=== PATIENT | female | born 2000 | race Caucasian/White ===

== ENCOUNTER 2024-10-12 06:33 | Inpatient (IN) ==
[2024-10-12 07:51] LABS: Hematocrit (blood only) 32.7 % (37.0-47.0); Hemoglobin 11.2 g/dl (12.0-16.0); Mean Corpuscular Hemoglobin 31.7 pg (25.0-34.0); Mean Corpuscular Hgb Conc 34.3 g/dL (32.0-36.0); Mean Corpuscular Volume 92.6 fL (80.0-100.0); Mean Platelet Volume 12.4 fL (9.4-12.4); Platelet Count 193 K/uL (130-400); RDW Coefficient of Variation 13.1 % (11.5-14.5); RDW Standard Deviation 42.9 fL (36.4-46.3); Red Blood Count 3.53 M/uL (4.20-5.40); White Blood Count 8.84 K/ul (4.8-10.8)
[2024-10-12 08:07] LABS: Creatinine Clr Calc Pharmacy 213.2 ml/min
[2024-10-12 08:24] LABS: Creatinine Urine Random 195.7 mg/dl; Protein Creatinine Ratio Urine 0.6 (0-0.2); Total Protein Urine Random 115.8 mg/dl (0-11.9)
--- NOTE | 2024-10-12 08:46 | History & Physical Report ---
Date of Service October 12, 2024 Assessment & Plan (1) with 35 completed weeks gestation: (2) Preeclampsia: Plan Patient meets criteria for preeclampsia without severe sx. 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 given GA need to be cautious about when to deliver. Currently does not meet criteria for severe disease which would require immediate delivery. Without severe sx, recommendations for delivery at 37 weeks. Fetus category one, nst reactive. Plan to repeat labs in 4 hours. If stable, would consider d/c home with precautions and short f/u in the office tomorrow. If lfts are bumping or other concerns or severe sx develp, would recommend delivery. Continue to monitor closely. Explained situation to the patient and fob and they express understanding. History of Present Illness Chief Complaint: decreased movement Primary Care Provider: NO PCP Patient is a 23yowf with iup at 35 5/7 weeks who presents to labor and delivery this am noting a change in fm. Notes she is still feeling movement just not as strong. She was a oneil at 34 weeks and has been uncomplica kasey. She had a mildly elevated blood pressure so labs were ordered. She dipped +2 protein. 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 Bps in 140s/90s Patient notes a maza on/off for several days. Takes tylenol with some relief but always comes back. Not severe. no increase in edema. No RUQ pain. Notes some n/v over the last few days. and Delivery Plans Transfer into care @ 33+ weeks *records reviewed. Back pain in *PT referral placed Depression with anxiety *on meds *rec est with pcp myles Initial OB Labs 04/14/24 Blood Type & RH O positive Antibody Screen negative HCT/HGB 38.1/13.1 Platelets 265 Hep C IgG 13yrs+ non-reactive Pap Test Chlamydia not detected Gonorrhea not detected Rubella immune RPR non-reactive Urine Culture/Screen <10,000 normal urogenital masha HBsAg negative HIV non-reactive MCV 96.9 Ultrasound V Zoster IgG negative 24-28 Week OB Labs 08/08/24 HCT/HGB 33.5/11.2 Diabetes Screen (1hr) 121 Genetic testing [facility] 06/06/24 Screen negative Allergies Allergy/AdvReac Type Severity Reaction Status Date / Time No Known Allergies Allergy Verified 10/06/24 13:42 Home Medications Medication Instructions Recorded Confirmed Type lamotrigine 200 mg PO DAILY 09/28/24 10/12/24 History 21-iron fu-folic acid 1 tab PO DAILY 09/28/24 10/12/24 History [ Complete] venlafaxine 75 mg PO DAILY 09/28/24 10/12/24 History Patient History Medical History Chlamydia GERD (gastroesophageal reflux disease) Surgical History No history of previous surgery Family History Grandmother (Maternal) Breast cancer Grandfather (Paternal) Stroke Heart disease Denies family history of Ovarian cancer Colorectal cancer Social History Smoking Status: Current every day smoker Tobacco Type: E-cigarettes / Vaping Do You Dip or Chew Tobacco: No; Hx Alcohol Use: No Hx Substance Use: No Preferred Language: Kinyarwanda marital status: Single marital status details: elisa Sanchez (33) [phone] Current Living Situation: Significant Other and Other Current Living Situation Comment: lives with fob, aunt/uncle, dog, cat-fob changing litter current occupational status: unemployed Feels Safe at Home: Yes Safety Concerns: Feels Safe At This Time 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 Physical Exam Constitutional: WD/WN, vitals as above Cardiovascular: Extremities: no calf tenderness and no edema Gastrointestinal (Abdomen): soft, gravid, nt no ruq pain to palpation Neurologic: patellar DTR's 2+ bilat, sensation intact (no clonus) Psychiatric: A+Ox3, euthymic affect Genitourinary: cx--deferred toco--scout efm--150s with mod variability, accels to 170s, no decels Results & Data Vital Signs (Past 12 Hours) Vital Signs Temp Pulse Resp BP 10/12/24 08:30 96 H 133/99 10/12/24 08:15 89 144/98 H 10/12/24 07:59 82 135/89 10/12/24 07:45 94 H 135/87 10/12/24 07:30 83 131/88 10/12/24 07:11 82 135/89 10/12/24 07:00 18 10/12/24 07:00 37.4 C 18 10/12/24 06:49 37.4 C 18 10/12/24 06:43 102 H 142/98 H Coding Level of Care Code None Diagnoses with 35 completed weeks gestation Z3A.35 Preeclampsia O14.90
[2024-10-12] MEDS: ACETAMINOPHEN 325 MG TAB PO PRN (11:17)
[2024-10-12 12:35] LABS: Hematocrit (blood only) 31.8 % (37.0-47.0); Hemoglobin 11.1 g/dl (12.0-16.0); Mean Corpuscular Hemoglobin 32.6 pg (25.0-34.0); Mean Corpuscular Hgb Conc 34.9 g/dL (32.0-36.0); Mean Corpuscular Volume 93.5 fL (80.0-100.0); Mean Platelet Volume 12.9 fL (9.4-12.4); Platelet Count 190 K/uL (130-400); RDW Coefficient of Variation 13.1 % (11.5-14.5); RDW Standard Deviation 43.9 fL (36.4-46.3); White Blood Count 9.29 K/ul (4.8-10.8)
[2024-10-12 13:04] LABS: Albumin Level 3.1 gm/dl (3.4-5.0); BUN Creatinine Ratio 8.5 (10-20); Bilirubin,Total 0.9 mg/dl (0.2-1.0); Calcium 8.9 mg/dl (8.6-10.3); Creatinine Clr Calc Pharmacy 119.7 ml/min; Globulin 3.1 gm/dl (2.5-4.0); Potassium 3.7 mmol/L (3.5-5.1); Total Protein 6.2 gm/dl (6.0-8.3)
[2024-10-12] MEDS ORDERED: ACETAMINOPHEN 325 MG TAB PO PRN (14:41)
--- NOTE | 2024-10-12 14:41 | Obstetrical Progress Note ---
Date of Service October 12, 2024 Assessment & Plan (1) Preeclampsia: (2) with 35 completed weeks gestation: Plan Lfts are slightly greater but not 2x normal. 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 Blood pressures are not consistently in severe range. fetus category one, nst reactive. Exam benign. No severe s/s. [place] [facility] [place] the story , he agrees she does not have a severe sx to initiate delivery now given ga. But does note the picture is concerning for developing severe disease. He recommends observation with serial blood pressures and labs. If anything takes her over to severe, then delivery. If after 24-48 hours, she does not develop severe sx, can consider close outpatient obs in effort to get to 37 weeks. Will give steroids. Explained to patient and FOB and they express understanding. Talked with peds and ok with keeping. Discussed the potential issues with prematurity and that we can deal wiht most issues at this GA here. Discussed that likely will not need transfer to NICU care, but cannot guarantee and can transfer for delivery if they desire. Considering but leaning to staying here. I think they are ok to stay here. Subjective Patient notes that her maza is improved, now 2/10. Feeling overall ok. +fm, occasional contraction. Physical Exam Physical Exam: bps for the most part 140-150/90. Had one 101. The two other elevated blood pressures are explained by being taken just after conversation Results & Data Vital Signs (Past 12 Hours) Vital Signs Temp Pulse Resp BP 10/12/24 13:56 98 H 10/12/24 13:56 142/98 H 10/12/24 13:41 111 H 10/12/24 13:41 137/101 H 10/12/24 13:26 108 H 10/12/24 13:26 143/99 H 10/12/24 13:05 88 10/12/24 13:05 155/97 H 10/12/24 12:46 81 10/12/24 12:46 138/91 10/12/24 12:16 102 H 10/12/24 12:16 149/99 H 10/12/24 11:46 89 10/12/24 11:46 139/90 10/12/24 11:14 100 H 10/12/24 11:14 140/93 10/12/24 10:59 103 H 10/12/24 10:59 147/98 H 10/12/24 10:44 102 H 10/12/24 10:44 146/94 H 10/12/24 10:29 100 H 10/12/24 10:29 157/94 H 10/12/24 10:14 123 H 10/12/24 10:14 143/99 H 10/12/24 09:59 112 H 10/12/24 09:59 166/102 H 10/12/24 09:40 142 H 10/12/24 09:40 172/99 H 10/12/24 09:08 101 H 10/12/24 09:08 147/107 H 10/12/24 08:30 96 H 133/99 10/12/24 08:15 89 144/98 H 10/12/24 07:59 82 135/89 10/12/24 07:45 94 H 135/87 10/12/24 07:30 83 131/88 10/12/24 07:11 82 135/89 10/12/24 07:00 18 10/12/24 07:00 37.4 C 18 10/12/24 06:49 37.4 C 18 10/12/24 06:43 102 H 142/98 H PG Care Time/CCT Total # of Minutes Spent Total Time Spent with Patient: Total time spent is greater than 50% in coordination of care (as documented) at patient's floor/unit and/or counseling patient: Coding Level of Care Code 16520 SUB INP/OBS CARE 2/35MIN Diagnoses Preeclampsia O14.90 with 35 completed weeks gestation Z3A.35
[2024-10-12] MEDS: BETAMETH SOD PHOS/ACETATE IA 6 MG/ML ONE (15:08)
[2024-10-12] MEDS ORDERED: LIDOCAINE 1% LOCAL 20 ML VIAL INFIL PRN (15:40)
--- NOTE | 2024-10-12 15:47 | Communication Note ---
Date of Service: October 12, 2024 Since transfer to the floor her pressures have been in a severe range. Therefore, I believe she meets criteria for iol for pet with severe features. D iscussed with the couple and they express understanding. I believe the benefits of delivery are now outweighed by prematurity risks to the fetus. They are agreeable to staying here for delivery. Discussed Mag prophylaxis, gonzalez in bladder, gonzalez for cervical ripening, monitoring, pitocin. They express understanding of the plan.
[2024-10-12] MEDS: SODIUM CHLORIDE 0.9% 1,000 ML IV SCH (16:10)
[2024-10-12] MEDS: MAG SULFATE 6GM BOLUS FROM BAG IV ONE (16:15)
[2024-10-12] MEDS: LABETALOL HCL IV 5 MG/ML 20ML IV STA (16:23)
[2024-10-12] MEDS: LIDOCAINE 2% JELLY 5 ML TUBE EXT ONE (16:42)
[2024-10-12] MEDS: MAGNESIUM SULFATE / WTR 40 GM/1,000 ML BAG IV SCH (16:48)
[2024-10-12 17:02] LABS: INR 0.9 (0.9-1.1); Partial Thromboplastin Ratio 0.9; Partial Thromboplastin Time 24 Seconds (21-31); Prothrombin Time 9.9 Seconds (9.0-12.0)
--- NOTE | 2024-10-12 17:10 | Communication Note ---
Date of Service: October 12, 2024 cx--cl/50/-2 toco--scout efm--130s with mod variability, accels present, no decels bp improved after one dose of labetolol and mag Attempted to place gonzalez without success. Uncomfortable for patient Plan to now do cervical ripening with cytotec
[2024-10-12] MEDS: miSOPROStoL 25 MCG TAB PV ONE ×2 (18:01→22:26)
[2024-10-12 20:33] LABS: Hematocrit (blood only) 33.3 % (37.0-47.0); Hemoglobin 11.5 g/dl (12.0-16.0); Mean Corpuscular Hemoglobin 32.2 pg (25.0-34.0); Mean Corpuscular Hgb Conc 34.5 g/dL (32.0-36.0); Mean Corpuscular Volume 93.3 fL (80.0-100.0); Mean Platelet Volume 12.5 fL (9.4-12.4); Platelet Count 198 K/uL (130-400); RDW Standard Deviation 43.9 fL (36.4-46.3); Red Blood Count 3.57 M/uL (4.20-5.40); White Blood Count 8.37 K/ul (4.8-10.8)
[2024-10-12 20:47] LABS: Albumin Globulin Ratio 1.1 (0.9-2); Albumin Level 3.4 gm/dl (3.4-5.0); BUN Creatinine Ratio 12.7 (10-20); Creatinine Clr Calc Pharmacy 155.9 ml/min; Globulin 3.2 gm/dl (2.5-4.0); Total Protein 6.6 gm/dl (6.0-8.3)
[2024-10-12] MEDS: SODIUM CHLORIDE 0.9% 500 ML IV SCH (21:53)
[2024-10-12] MEDS: MAG SULFATE 4GM BOLUS FROM BAG IV ONE (21:53)
[2024-10-12] MEDS: VENLAFAXINE HCL 37.5 MG TAB PO SCH (21:56)
[2024-10-12] MEDS: lamoTRIgine 100 MG TAB PO SCH (21:56)
[2024-10-12] MEDS: OXYTOCIN 30 UNITS/NSS 30 UNITS/500 ML BAG IV PRN (22:14)
--- NOTE | 2024-10-12 22:15 | Labor Progress Brief Note ---
Date of Service October 12, 2024 Subjective Patient feeling about the same. Mild maza 2-3, some slight discomfort under her right ribs. Labs are essentially stable. Assessment & Plan (1) Preeclampsia: Plan STart pitocin. good response to cytotec. start pcn. fetus reassuring, category one. Admission and Anticipated Discharge Date Admission Date: October 12, 2024 Physical Exam Physical Exam: cx--2/75/-2/mid/soft toco==scout efm--115 with mod variability, accels to 130s, no decels, mag effect Results & Data Vital Signs (Past 12 Hours) Vital Signs Temp Pulse Resp BP 10/12/24 22:00 80 10/12/24 22:00 137/96 10/12/24 21:44 83 10/12/24 21:44 128/83 10/12/24 21:30 92 H 10/12/24 21:30 145/100 H 10/12/24 21:15 90 10/12/24 21:15 141/87 H 10/12/24 21:00 18 10/12/24 20:59 88 10/12/24 20:59 131/73 10/12/24 20:45 88 10/12/24 20:45 128/74 10/12/24 20:29 86 10/12/24 20:29 132/75 10/12/24 20:14 80 10/12/24 20:14 133/87 10/12/24 20:00 18 10/12/24 19:59 86 10/12/24 19:59 126/80 10/12/24 19:45 81 10/12/24 19:45 131/83 10/12/24 19:30 83 10/12/24 19:30 131/83 10/12/24 19:14 94 H 10/12/24 19:14 126/80 10/12/24 19:10 36.6 C 18 10/12/24 19:10 18 10/12/24 19:10 18 10/12/24 19:10 36.6 C 18 10/12/24 19:00 83 10/12/24 19:00 125/79 10/12/24 18:44 90 10/12/24 18:44 116/78 10/12/24 18:30 91 H 10/12/24 18:30 133/84 10/12/24 18:15 86 10/12/24 18:15 125/78 10/12/24 17:59 20 10/12/24 17:59 36.5 C 20 10/12/24 17:59 80 10/12/24 17:59 132/82 10/12/24 17:44 92 H 10/12/24 17:44 131/84 10/12/24 17:29 82 10/12/24 17:29 132/83 10/12/24 17:11 80 10/12/24 17:11 18 142/87 H 10/12/24 16:56 82 10/12/24 16:56 141/91 H 10/12/24 16:51 85 10/12/24 16:51 20 134/89 10/12/24 16:46 88 10/12/24 16:46 132/89 10/12/24 16:43 89 142/95 H 10/12/24 16:36 82 10/12/24 16:36 138/90 10/12/24 16:31 89 10/12/24 16:31 20 142/95 H 10/12/24 16:23 85 150/101 H 10/12/24 16:20 85 10/12/24 16:20 150/101 H 10/12/24 16:05 96 H 10/12/24 16:05 170/122 H 10/12/24 15:50 88 10/12/24 15:50 20 170/111 H 10/12/24 15:20 37.0 C 93 H 20 10/12/24 15:20 154/103 H 10/12/24 15:06 84 10/12/24 15:06 160/102 H 10/12/24 14:41 93 H 10/12/24 14:41 20 171/110 H 10/12/24 13:56 98 H 10/12/24 13:56 18 142/98 H 10/12/24 13:41 111 H 10/12/24 13:41 137/101 H 10/12/24 13:26 108 H 10/12/24 13:26 20 143/99 H 10/12/24 13:05 88 10/12/24 13:05 155/97 H 10/12/24 12:46 81 10/12/24 12:46 18 138/91 10/12/24 12:16 102 H 10/12/24 12:16 149/99 H 10/12/24 11:46 89 10/12/24 11:46 139/90 10/12/24 11:14 100 H 10/12/24 11:14 140/93 10/12/24 10:59 103 H 10/12/24 10:59 147/98 H 10/12/24 10:44 102 H 20 10/12/24 10:44 146/94 H 10/12/24 10:29 100 H 10/12/24 10:29 157/94 H 10/12/24 10:14 123 H 10/12/24 10:14 143/99 H Coding Level of Care Code None Diagnoses Preeclampsia O14.90
[2024-10-12] MEDS: PENICILLIN GK 6 MU in SODIUM CHLORIDE 0.9% 250 ML IV STA (22:25)
--- NOTE | 2024-10-12 23:36 | Anesthesiology Consultation ---
Date of Service October 12, 2024 Assessment & Plan (1) Encounter for pre-operative examination: Chart Review Chart Review: Acceptable Risk for Labor Epidural History Height/Weight Height: 5 ft 5 in Weight: 90.718 kg Allergies Allergy/AdvReac Type Severity Reaction Status Date / Time No Known Allergies Allergy Verified 10/06/24 13:42 Medications Home Medications Medication Instructions Recorded Confirmed Last Taken lamotrigine 200 mg PO DAILY 09/28/24 10/12/24 10/11/24 21:00 21-iron fu-folic acid 1 tab PO DAILY 09/28/24 10/12/24 10/11/24 21:00 [ Complete] venlafaxine 75 mg PO DAILY 09/28/24 10/12/24 10/11/24 21:00 Active Medications Generic Name Dose Route Start Last Admin Trade Name Freq PRN Reason Stop Dose Admin Acetaminophen 650 mg 10/12/24 09:47 10/12/24 18:33 Acetaminophen 325 Mg Tab PO 11/11/24 09:46 650 mg Q4H PRN Administration Headache or Pain Magnesium Sulfate 40 gm in 1,000 mls @ 50 mls/hr 10/12/24 15:45 10/12/24 19:05 Magnesium Sulfate / Wtr IV 11/11/24 15:44 50 mls/hr .Q20H EULALIA Infusion Oxytocin 30 units in 500 mls @ 3 mls/hr 10/12/24 15:44 10/12/24 23:00 Pitocin 30 Units/Nss IV 10/14/24 15:43 0.18 units/hr .Q24H PRN 3 mls/hr Labor Induction/Augmentation Titration Protocol 0.18 UNITS/HR Sodium Chloride 1,000 mls @ 75 mls/hr 10/12/24 16:30 10/12/24 19:05 Nss IV 10/13/24 16:29 75 mls/hr .[id number] EULALIA Infusion Lamotrigine 200 mg 10/12/24 21:00 10/12/24 21:56 Lamotrigine 100 Mg Tab PO 11/11/24 20:59 200 mg QPM EULALIA Administration Protocol Venlafaxine HCl 75 mg 10/12/24 21:00 10/12/24 21:56 Venlafaxine Hcl 37.5 Mg Tab PO 11/11/24 20:59 75 mg QPM EULALIA Administration Past Medical History Medical History (Updated 10/12/24 @ 23:36 by Joe Toribio MD) Preeclampsia Depression with anxiety Chlamydia GERD (gastroesophageal reflux disease) Past Family History Family History Grandmother (Maternal) Breast cancer Grandfather (Paternal) Stroke Heart disease Denies family history of Ovarian cancer Colorectal cancer Past Surgical History Surgical History No history of previous surgery Social History Smoking Status: Current every day smoker Do You Dip or Chew Tobacco: No Hx Alcohol Use: No Hx Substance Use: No Physical Exam Vital Signs Last Vital Signs Temp 36.6 C 10/12/24 23:00 Pulse 99 H 10/12/24 23:31 Resp 18 10/12/24 23:00 BP 166/105 H 10/12/24 23:31 Testing Laboratory Results 10/12/24 20:12 10/12/24 20:12 PT 9.9 Seconds (9.0-12.0) 10/12/24 16:10 INR 0.9 (0.9-1.1) 10/12/24 16:10 APTT 24 Seconds (21-31) 10/12/24 16:10 Blood Type O Positive 10/12/24 07:35 Antibody Screen NEGATIVE 10/12/24 07:35
[2024-10-13] MEDS: fentaNYL citrate PF 100 MCG/2 ML VIAL ONE (00:04)
[2024-10-13] MEDS: LIDOCAINE 2%/EPINEPHRINE 1:200,000 20 ML PF ONE (00:04)
[2024-10-13] MEDS: BUPIVACAINE 0.25% PF 30 ML VIAL ONE (00:04)
[2024-10-13] MEDS: fentANYL 2 MCG/ML BUPIVacaine 0.125%-NSS 100ML BAG ONE (00:05)
[2024-10-13] MEDS ORDERED: SODIUM CHLORIDE 0.9% PF INJ 10 ML VIAL EPI PRN (00:10)
[2024-10-13] MEDS ORDERED: NALOXONE HCL 0.4 MG/1 ML VIAL/CARP IV PRN (00:10)
[2024-10-13] MEDS ORDERED: ROPIVACAINE 0.5% PF 5 MG/ML 20 ML VIAL EPI PRN (00:10)
[2024-10-13] MEDS ORDERED: NALOXONE HCL 1 MG in SODIUM CHLORIDE 0.9% 1,000 ML IV PRN (00:10)
[2024-10-13] MEDS ORDERED: fentaNYL citrate PF 100 MCG/2 ML VIAL EPI PRN (00:10)
[2024-10-13] MEDS ORDERED: LIDOCAINE 2% MPF LOCAL 5 ML VIAL EPI PRN (00:10)
[2024-10-13] MEDS ORDERED: ePHEDrine sulfate 50 MG/ML AMP IV PRN (00:10)
[2024-10-13] MEDS: SODIUM CHLORIDE 0.9% PF INJ 10 ML VIAL ONE (00:18)
[2024-10-13] MEDS: BUPIVACAINE 0.25% PF 30 ML VIAL EPI STA (01:13)
[2024-10-13] MEDS: LIDOCAINE 2%/EPINEPHRINE 1:200,000 20 ML PF EPI STA (01:13)
[2024-10-13] MEDS: ePHEDrine sulfate 50 MG/ML AMP ONE (01:13)
[2024-10-13] MEDS: fentaNYL citrate PF 100 MCG/2 ML VIAL EPI STA (01:13)
[2024-10-13] MEDS: SODIUM CHLORIDE 0.9% PF INJ 10 ML VIAL EPI STA (01:14)
--- NOTE | 2024-10-13 01:31 | Labor Progress Brief Note ---
Date of Service October 13, 2024 Subjective comfortable after epidural. bps were elevated again when in pain , but now wnl, even a bit low. Assessment & Plan (1) Preeclampsia: Plan continue current managements. bps normalized after epidural. fetus mostly category one, some decreased variability from mag effect. Admission and Anticipated Discharge Date Admission Date: October 12, 2024 Physical Exam Physical Exam: cx--tight 3/80/-2 arom attempt--small clear toco--irregular with large spacing, pit at 5 efm--130s with min to mod variability, small accels, +scalp stim Results & Data Vital Signs (Past 12 Hours) Vital Signs Temp Pulse Resp BP Pulse Ox 10/13/24 01:23 103 H 97 10/13/24 01:18 101 H 94 10/13/24 01:16 96 H 107/64 94 10/13/24 01:13 96 H 95 10/13/24 01:10 104 H 94 10/13/24 01:08 100 H 95 10/13/24 01:03 97 H 95 10/13/24 01:01 99 H 112/64 10/13/24 01:00 18 10/13/24 01:00 18 10/13/24 01:00 36.6 C 18 10/13/24 00:58 98 H 110/63 96 10/13/24 00:56 98 H 93 10/13/24 00:53 102 H 95 10/13/24 00:52 97 H 110/66 10/13/24 00:48 103 H 96 10/13/24 00:47 105 H 111/65 10/13/24 00:43 110 H 97 10/13/24 00:42 103 H 111/63 10/13/24 00:40 18 10/13/24 00:40 18 10/13/24 00:38 95 10/13/24 00:38 100 H 10/13/24 00:38 98 H 105/59 L 10/13/24 00:35 18 10/13/24 00:35 18 10/13/24 00:33 102 H 97 10/13/24 00:32 106 H 124/78 10/13/24 00:30 18 10/13/24 00:30 18 10/13/24 00:28 97 10/13/24 00:28 111 H 10/13/24 00:28 106 H 119/72 10/13/24 00:25 18 10/13/24 00:25 18 10/13/24 00:23 118 H 125/77 98 10/13/24 00:20 18 10/13/24 00:20 18 10/13/24 00:18 117 H 97 10/13/24 00:17 130 H 122/59 L 10/13/24 00:16 142 H 127/89 10/13/24 00:15 133 H 128/87 10/13/24 00:14 108 H 125/75 10/13/24 00:13 98 10/13/24 00:13 109 H 10/13/24 00:13 111 H 123/72 10/13/24 00:12 104 H 120/74 10/13/24 00:11 100 H 125/73 10/13/24 00:10 113 H 124/75 10/13/24 00:09 104 H 136/89 10/13/24 00:08 101 H 124/72 98 10/13/24 00:06 103 H 10/13/24 00:06 129/76 10/13/24 00:06 96 H 127/74 10/13/24 00:04 100 H 10/13/24 00:04 138/84 10/13/24 00:04 96 H 138/87 10/13/24 00:03 96 H 99 10/13/24 00:02 95 H 162/113 H 10/13/24 00:01 103 H 164/114 H 10/13/24 00:00 18 10/13/24 00:00 111 H 180/120 H 10/12/24 23:58 100 10/12/24 23:58 109 H 10/12/24 23:53 100 10/12/24 23:53 98 H 10/12/24 23:48 99 10/12/24 23:48 102 H 10/12/24 23:44 98 H 10/12/24 23:44 162/108 H 10/12/24 23:43 98 10/12/24 23:43 99 H 10/12/24 23:38 97 10/12/24 23:38 97 H 10/12/24 23:35 97 H 10/12/24 23:35 158/101 H 10/12/24 23:31 99 H 10/12/24 23:31 166/105 H 10/12/24 23:14 101 H 10/12/24 23:14 143/99 H 10/12/24 23:00 18 10/12/24 23:00 18 10/12/24 23:00 36.6 C 18 10/12/24 22:59 99 H 10/12/24 22:59 133/88 10/12/24 22:45 95 H 10/12/24 22:45 146/94 H 10/12/24 22:29 87 10/12/24 22:29 148/90 H 10/12/24 22:14 86 10/12/24 22:14 142/98 H 10/12/24 22:00 18 10/12/24 22:00 80 10/12/24 22:00 137/96 10/12/24 21:44 83 10/12/24 21:44 128/83 10/12/24 21:30 92 H 10/12/24 21:30 145/100 H 10/12/24 21:15 90 10/12/24 21:15 141/87 H 10/12/24 21:00 18 10/12/24 20:59 88 10/12/24 20:59 131/73 10/12/24 20:45 88 10/12/24 20:45 128/74 10/12/24 20:29 86 10/12/24 20:29 132/75 10/12/24 20:14 80 10/12/24 20:14 133/87 10/12/24 20:00 18 10/12/24 19:59 86 10/12/24 19:59 126/80 10/12/24 19:45 81 10/12/24 19:45 131/83 10/12/24 19:30 83 10/12/24 19:30 131/83 10/12/24 19:14 94 H 10/12/24 19:14 126/80 10/12/24 19:10 36.6 C 18 10/12/24 19:10 18 10/12/24 19:10 18 10/12/24 19:10 36.6 C 18 10/12/24 19:00 83 10/12/24 19:00 125/79 10/12/24 18:44 90 10/12/24 18:44 116/78 10/12/24 18:30 91 H 10/12/24 18:30 133/84 10/12/24 18:15 86 10/12/24 18:15 125/78 10/12/24 17:59 20 10/12/24 17:59 36.5 C 20 10/12/24 17:59 80 10/12/24 17:59 132/82 10/12/24 17:44 92 H 10/12/24 17:44 131/84 10/12/24 17:29 82 10/12/24 17:29 132/83 10/12/24 17:11 80 10/12/24 17:11 18 142/87 H 10/12/24 16:56 82 10/12/24 16:56 141/91 H 10/12/24 16:51 85 10/12/24 16:51 20 134/89 10/12/24 16:46 88 10/12/24 16:46 132/89 10/12/24 16:43 89 142/95 H 10/12/24 16:36 82 10/12/24 16:36 138/90 10/12/24 16:31 89 10/12/24 16:31 20 142/95 H 10/12/24 16:23 85 150/101 H 10/12/24 16:20 85 10/12/24 16:20 150/101 H 10/12/24 16:05 96 H 10/12/24 16:05 170/122 H 10/12/24 15:50 88 10/12/24 15:50 20 170/111 H 10/12/24 15:20 37.0 C 93 H 10/12/24 15:20 154/103 H 10/12/24 15:06 84 10/12/24 15:06 160/102 H 10/12/24 14:41 93 H 10/12/24 14:41 20 171/110 H 10/12/24 13:56 98 H 10/12/24 13:56 18 142/98 H 10/12/24 13:41 111 H 10/12/24 13:41 137/101 H Coding Level of Care Code None Diagnoses Preeclampsia O14.90
[2024-10-13] MEDS: PENICILLIN GK 3 MU in DEXTROSE 5% 100 ML IV PRN (01:59)
[2024-10-13] MEDS: ONDANSETRON INJ 2 MG/ML 2 ML VIAL IV PRN ×2 (07:27→22:09)
--- NOTE | 2024-10-13 08:05 | Labor Progress Brief Note ---
Date of Service October 13, 2024 Subjective Pateint notes intermittent mild maza. Pressures overall ok, only elevated when vomiting or painful. Just had episode of n/v and feeling better. Assessment & Plan (1) Preeclampsia: Plan making progress. fetus overall category one. mag effect noted. no worsening of status. Admission and Anticipated Discharge Date Admission Date: October 12, 2024 Physical Exam Physical Exam: cx--4-5/100/-2 toco--difficult tracing, q2-5min, pit now at 20 iupc placed efm--115 with min to mod variability, accels present, good scalp stim Results & Data Vital Signs (Past 12 Hours) Vital Signs Temp Pulse Resp BP Pulse Ox O2 Del Method 10/13/24 07:58 103 H 98 10/13/24 07:53 99 H 99 10/13/24 07:48 101 H 99 10/13/24 07:46 102 H 144/98 H 10/13/24 07:43 106 H 99 10/13/24 07:38 103 H 98 10/13/24 07:36 106 H 152/97 H 10/13/24 07:33 105 H 99 10/13/24 07:32 105 H 153/100 H 10/13/24 07:28 112 H 99 10/13/24 07:23 110 H 99 10/13/24 07:18 99 10/13/24 07:18 114 H 10/13/24 07:18 105 H 161/103 H 10/13/24 07:15 18 10/13/24 07:15 Room Air 10/13/24 07:13 116 H 99 10/13/24 07:08 119 H 99 10/13/24 07:05 36.8 C 16 10/13/24 07:03 103 H 99 10/13/24 07:02 99 H 146/92 H 10/13/24 06:58 105 H 97 10/13/24 06:53 98 H 97 10/13/24 06:48 95 H 97 10/13/24 06:46 100 H 112/70 10/13/24 06:43 99 H 97 10/13/24 06:38 104 H 97 10/13/24 06:33 112 H 115/74 97 10/13/24 06:28 119 H 97 10/13/24 06:23 98 H 97 10/13/24 06:18 105 H 96 10/13/24 06:16 96 H 117/64 10/13/24 06:13 104 H 96 10/13/24 06:08 104 H 96 10/13/24 06:03 99 H 97 10/13/24 06:02 100 H 135/70 10/13/24 06:00 18 10/13/24 05:58 96 H 97 10/13/24 05:53 103 H 95 10/13/24 05:49 104 H 94 10/13/24 05:48 105 H 95 10/13/24 05:46 112 H 139/84 10/13/24 05:43 105 H 94 10/13/24 05:38 105 H 95 10/13/24 05:33 103 H 95 10/13/24 05:32 102 H 94 10/13/24 05:31 108 H 133/79 10/13/24 05:28 103 H 94 10/13/24 05:27 104 H 94 10/13/24 05:23 102 H 94 10/13/24 05:21 105 H 94 10/13/24 05:18 104 H 95 10/13/24 05:16 105 H 143/80 H 10/13/24 05:15 101 H 93 10/13/24 05:13 104 H 95 10/13/24 05:10 102 H 93 10/13/24 05:08 105 H 94 10/13/24 05:05 104 H 94 10/13/24 05:03 105 H 94 10/13/24 05:01 105 H 142/84 H 10/13/24 05:00 18 10/13/24 05:00 18 10/13/24 05:00 36.6 C 18 10/13/24 04:58 106 H 94 10/13/24 04:53 95 10/13/24 04:53 109 H 10/13/24 04:53 106 H 94 10/13/24 04:48 103 H 96 10/13/24 04:46 104 H 138/87 10/13/24 04:43 104 H 96 10/13/24 04:38 102 H 96 10/13/24 04:33 105 H 96 10/13/24 04:31 104 H 141/88 H 10/13/24 04:28 104 H 96 10/13/24 04:23 106 H 98 10/13/24 04:18 100 H 96 10/13/24 04:16 99 H 134/82 10/13/24 04:13 103 H 96 10/13/24 04:08 104 H 96 10/13/24 04:03 104 H 97 10/13/24 04:02 107 H 143/92 H 10/13/24 04:00 18 10/13/24 04:00 18 10/13/24 04:00 36.6 C 18 10/13/24 03:58 106 H 95 10/13/24 03:54 96 H 94 10/13/24 03:53 99 H 95 10/13/24 03:48 95 10/13/24 03:48 98 H 10/13/24 03:48 101 H 94 10/13/24 03:46 101 H 114/64 10/13/24 03:43 102 H 95 10/13/24 03:42 101 H 94 10/13/24 03:38 105 H 94 10/13/24 03:37 103 H 94 10/13/24 03:33 102 H 95 10/13/24 03:32 100 H 94 10/13/24 03:31 105 H 114/66 10/13/24 03:28 99 H 96 10/13/24 03:23 105 H 96 10/13/24 03:18 95 H 96 10/13/24 03:17 98 H 116/67 10/13/24 03:13 102 H 97 10/13/24 03:08 100 H 98 10/13/24 03:03 97 H 96 10/13/24 03:01 101 H 112/68 10/13/24 03:00 18 10/13/24 02:58 100 H 97 10/13/24 02:53 99 H 97 10/13/24 02:48 100 H 97 10/13/24 02:47 97 H 137/78 10/13/24 02:43 108 H 97 10/13/24 02:38 100 H 97 10/13/24 02:33 97 H 98 10/13/24 02:31 96 H 116/71 10/13/24 02:28 97 H 97 10/13/24 02:23 97 H 97 10/13/24 02:18 100 H 98 10/13/24 02:16 96 H 118/72 10/13/24 02:13 103 H 98 10/13/24 02:08 117 H 98 10/13/24 02:03 100 H 97 10/13/24 02:02 108 H 118/87 10/13/24 02:00 18 10/13/24 01:58 114 H 96 10/13/24 01:53 109 H 97 10/13/24 01:48 102 H 97 10/13/24 01:46 100 H 134/87 10/13/24 01:43 105 H 96 10/13/24 01:38 117 H 97 10/13/24 01:33 105 H 97 10/13/24 01:31 113 H 144/88 H 10/13/24 01:28 107 H 97 10/13/24 01:23 103 H 97 10/13/24 01:18 101 H 94 10/13/24 01:16 96 H 107/64 94 10/13/24 01:13 96 H 95 10/13/24 01:10 104 H 94 10/13/24 01:08 100 H 95 10/13/24 01:03 97 H 95 10/13/24 01:01 99 H 112/64 10/13/24 01:00 18 10/13/24 01:00 18 10/13/24 01:00 36.6 C 18 10/13/24 00:58 98 H 110/63 96 10/13/24 00:56 98 H 93 10/13/24 00:53 102 H 95 10/13/24 00:52 97 H 110/66 10/13/24 00:48 103 H 96 10/13/24 00:47 105 H 111/65 10/13/24 00:43 110 H 97 10/13/24 00:42 103 H 111/63 10/13/24 00:40 18 10/13/24 00:40 18 10/13/24 00:38 95 10/13/24 00:38 100 H 10/13/24 00:38 98 H 105/59 L 10/13/24 00:35 18 10/13/24 00:35 18 10/13/24 00:33 102 H 97 10/13/24 00:32 106 H 124/78 10/13/24 00:30 18 10/13/24 00:30 18 10/13/24 00:28 97 10/13/24 00:28 111 H 10/13/24 00:28 106 H 119/72 10/13/24 00:25 18 10/13/24 00:25 18 10/13/24 00:23 118 H 125/77 98 10/13/24 00:20 18 10/13/24 00:20 18 10/13/24 00:18 117 H 97 10/13/24 00:17 130 H 122/59 L 10/13/24 00:16 142 H 127/89 10/13/24 00:15 133 H 128/87 10/13/24 00:14 108 H 125/75 10/13/24 00:13 98 10/13/24 00:13 109 H 10/13/24 00:13 111 H 123/72 10/13/24 00:12 104 H 120/74 10/13/24 00:11 100 H 125/73 10/13/24 00:10 113 H 124/75 10/13/24 00:09 104 H 136/89 10/13/24 00:08 101 H 124/72 98 10/13/24 00:06 103 H 10/13/24 00:06 129/76 10/13/24 00:06 96 H 127/74 10/13/24 00:04 100 H 10/13/24 00:04 138/84 10/13/24 00:04 96 H 138/87 10/13/24 00:03 96 H 99 10/13/24 00:02 95 H 162/113 H 10/13/24 00:01 103 H 164/114 H 10/13/24 00:00 18 10/13/24 00:00 111 H 180/120 H 10/12/24 23:58 100 10/12/24 23:58 109 H 10/12/24 23:53 100 10/12/24 23:53 98 H 10/12/24 23:48 99 10/12/24 23:48 102 H 10/12/24 23:44 98 H 10/12/24 23:44 162/108 H 10/12/24 23:43 98 10/12/24 23:43 99 H 10/12/24 23:38 97 10/12/24 23:38 97 H 10/12/24 23:35 97 H 10/12/24 23:35 158/101 H 10/12/24 23:31 99 H 10/12/24 23:31 166/105 H 10/12/24 23:14 101 H 10/12/24 23:14 143/99 H 10/12/24 23:00 18 10/12/24 23:00 18 10/12/24 23:00 36.6 C 18 10/12/24 22:59 99 H 10/12/24 22:59 133/88 10/12/24 22:45 95 H 10/12/24 22:45 146/94 H 10/12/24 22:29 87 10/12/24 22:29 148/90 H 10/12/24 22:14 86 10/12/24 22:14 142/98 H 10/12/24 22:00 18 10/12/24 22:00 80 10/12/24 22:00 137/96 10/12/24 21:44 83 10/12/24 21:44 128/83 10/12/24 21:30 92 H 10/12/24 21:30 145/100 H 10/12/24 21:15 90 10/12/24 21:15 141/87 H 10/12/24 21:00 18 10/12/24 20:59 88 10/12/24 20:59 131/73 10/12/24 20:45 88 10/12/24 20:45 128/74 10/12/24 20:29 86 10/12/24 20:29 132/75 10/12/24 20:14 80 10/12/24 20:14 133/87 Coding Level of Care Code None Diagnoses Preeclampsia O14.90
[2024-10-13] MEDS: fentANYL 2 MCG/ML BUPIVacaine 0.125%-NSS 100ML BAG EPI PRN (08:36)
[2024-10-13] MEDS ORDERED: Nursing to Pharmacy Communication SCH ×2 (09:15→20:45)
[2024-10-13] MEDS: BUPIVACAINE 0.25% PF 30 ML VIAL EPI PRN (09:25)
--- NOTE | 2024-10-13 14:14 | Communication Note ---
Date of Service: October 13, 2024 Patient has not needed any more hypertensive intervention her blood pressures while elevated are in a much more reasonable range she is 9 cm there is a thicker anterior lip and she is -1 station the patient is uncomfortable as well she will receive her second dose of betamethasone soon as well for lung maturation continue current care and careful observation
[2024-10-13] MEDS: BETAMETH SOD PHOS/ACETATE IA 6 MG/ML IM SCH (14:41)
[2024-10-13] MEDS: OXYTOCIN 30 UNITS/NSS 30 UNITS/500 ML BAG IV PRN (19:15)
--- NOTE | 2024-10-13 19:24 | Delivery Summary ---
Vaginal Delivery Summary Date of Service October 13, 2024 Vaginal Delivery Summary VAVD and 2nd Degree LAC Vacuum-assisted vaginal delivery Clinical note the patient been pushing for over 2 hours and was hitting a point of exhaustion she was pushing the baby to +2 station the baby was in the right occiput anterior position there was some minor amount of caput but nothing significant there was no cephalopelvic disproportion palpated I offered the vacuum I discussed how it works risks including cephalohematoma and alternatives which was she reached the point where she was exhausted enough she wishes the vacuum and verbal consent was obtained Bladder was drained for approximately 100 cc prior to application of the vacuum vacuum was pulled twice with no excessive force using it in the green zone of pressure suction delivering over 2 contractions with 1 total pop-off a small midline episiotomy was made as well to facilitate delivery of the head. Once the head was delivered vacuum was detached baby was delivered easily no difficulties with the shoulder gentle traction combined with maternal expulsive efforts live vigorous male . Cord clamped and cut baby handed to pediatrics Cord gases obtained cord blood obtained placenta removed from the uterus with traction IV Pitocin started initially there was a gush of blood but at that stage it improved with uterine massage and IV Pitocin The episiotomy repaired with 3-0 Vicryl rectal exam was negative for sutures or defects sponge and instrument counts were correct QBL 511 mL MNPG Vaginal Delivery Charge Delivery Type Details: VAVD and 2nd Degree LAC
[2024-10-13] MEDS ORDERED: OXYTOCIN 30 UNITS/NSS 30 UNITS/500 ML BAG IV PRN (19:39)
[2024-10-13] MEDS ORDERED: HYDROCORTISONE ACETATE 25 MG SUPP PR PRN (19:39)
[2024-10-13] MEDS ORDERED: bisacodyL 10 MG SUPP PR PRN (19:39)
[2024-10-13 20:01] LABS: Base Excess Cord Arterial Bld -3.8 mEq/L (-9-1.8); Base Excess Cord Venous Blood -4.9 mEq/L (-7.7-1.9); CO2 Cord Arterial Blood 50 mmHg (39.1-73.5); Cord Venous Blood HCO3 21 mmol/L (18.4-26.8); Cord Venous Blood PCO2 39 mmHg (30.4-57.2); Cord Venous Blood PO2 34 mmHg (14.1-43.3); Cord Venous Blood pH 7.33 (7.20-7.44); HCO3 Cord Arterial Blood 24 mmol/L (19.7-28.5); O2 Saturation Cord Venous Bld 71.2 % (<68); Oxygen Sat Cord Arterial Blood < 60.0 % (<60); PO2 Cord Arterial Blood 25 mmHg (4.1-31.7); pH Cord Arterial Blood 7.28 (7.1-7.38)
[2024-10-13] MEDS: IBUPROFEN 600 MG TAB PO PRN (20:05)
--- NOTE | 2024-10-13 20:17 | Anesthesia Procedure Note ---
Date of Service October 13, 2024 Anesthesia Post Epidural Note Vital Signs Vital Signs: Temp Pulse Resp BP Pulse Ox O2 Del Method 36.7 C 97 H 20 148/96 H 97 Room Air 10/13/24 16:58 10/13/24 20:15 10/13/24 18:00 10/13/24 20:15 10/13/24 20:13 10/13/24 07:15 Pain Intensity Abdomen: Pain Intensity: 6 Head: Pain Intensity: 6 Notes Mental Status: alert / awake / arousable Nausea / Vomiting: adequately controlled Pain: adequately controlled Airway Patency, RR, SpO2: stable & adequate BP & HR: stable & adequate Hydration State: stable & adequate Neuraxial Anesthesia: was administered and sensory block is resolving Anesthetic Complications: no major complications apparent and Pt Satisfied with anesthetic care Epidural: Removed without complications and With tip intact
[2024-10-13] MEDS: DIPHTHER/TETAN/PERTUS Vaccine (Tdap, Adol/Adult) 0.5mL IM ONE (20:30)
[2024-10-13] MEDS: VENLAFAXINE HCL XR 75 MG CAPXR PO SCH (21:28)
[2024-10-13] MEDS: lamoTRIgine 100 MG TAB PO SCH (21:28)
[2024-10-13] MEDS: DOCUSATE SODIUM 100 MG CAP PO SCH (21:28)
[2024-10-14] MEDS: ACETAMINOPHEN 325 MG TAB PO PRN (00:42)
[2024-10-14] MEDS: BENZOCAINE 20% SPRY 85 APPLN/85 GM CAN EXT PRN (05:32)
[2024-10-14 06:28] LABS: Hematocrit (blood only) 28.8 % (37.0-47.0); Hemoglobin 9.7 g/dl (12.0-16.0); Mean Corpuscular Hgb Conc 33.7 g/dL (32.0-36.0); Mean Platelet Volume 12.7 fL (9.4-12.4); Platelet Count 209 K/uL (130-400); RDW Coefficient of Variation 12.5 % (11.5-14.5); RDW Standard Deviation 43.1 fL (36.4-46.3); Red Blood Count 3.03 M/uL (4.20-5.40); White Blood Count 16.66 K/ul (4.8-10.8)
[2024-10-14] MEDS: SODIUM CHLORIDE 0.9% 1,000 ML IV SCH (07:15)
[2024-10-14] MEDS: PRENATAL VITAMIN 1 TAB PO SCH (07:24)
[2024-10-14] MEDS: NIFEdipine EXTENDED REL 30 MG TABCR PO SCH (07:25)
[2024-10-14 08:11] LABS: Hematocrit (blood only) 30.1 % (37.0-47.0); Hemoglobin 10.1 g/dl (12.0-16.0); Mean Corpuscular Hemoglobin 31.9 pg (25.0-34.0); Mean Corpuscular Hgb Conc 33.6 g/dL (32.0-36.0); Mean Platelet Volume 12.2 fL (9.4-12.4); Platelet Count 216 K/uL (130-400); RDW Standard Deviation 44.9 fL (36.4-46.3); Red Blood Count 3.17 M/uL (4.20-5.40); White Blood Count 15.77 K/ul (4.8-10.8)
[2024-10-14 08:38] LABS: Albumin Level 2.8 gm/dl (3.4-5.0); BUN Creatinine Ratio 12.7 (10-20); Bilirubin Direct 0.1 mg/dl (0-0.2); Bilirubin,Total 0.8 mg/dl (0.2-1.0); Calcium 6.5 mg/dl (8.6-10.3); Creatinine Clr Calc Pharmacy 155.9 ml/min; Globulin 2.9 gm/dl (2.5-4.0); Potassium 3.7 mmol/L (3.5-5.1); Total Protein 5.7 gm/dl (6.0-8.3)
[2024-10-14] MEDS ORDERED: lamoTRIgine 100 MG TAB PO SCH (09:00)
[2024-10-14] MEDS: CALCIUM CARBONATE 500 MG CHEWABLE TAB ONE (19:36)
[2024-10-14] MEDS: bisacodyL 5 MG TABEC PO SCH (19:36)
[2024-10-14] MEDS: NIFEdipine 10 MG CAP ONE (21:29)
[2024-10-14 21:47] LABS: Basophils # (auto) 0.01 K/uL (0.00-0.20); Basophils % (auto) 0.1 %; Eosinophils # (auto) 0.05 K/uL (0.00-0.50); Eosinophils % (auto) 0.3 %; Hematocrit (blood only) 29.2 % (37.0-47.0); Immature Granulocytes % (auto) 0.7 %; Lymphocytes # (auto) 2.99 K/uL (1.20-3.40); Lymphocytes % (auto) 20.4 %; Mean Corpuscular Hemoglobin 32.6 pg (25.0-34.0); Mean Corpuscular Hgb Conc 34.2 g/dL (32.0-36.0); Mean Corpuscular Volume 95.1 fL (80.0-100.0); Mean Platelet Volume 12.2 fL (9.4-12.4); Monocytes # (auto) 1.01 K/uL (0.11-0.59); Monocytes % (auto) 6.9 %; Neutrophils # (auto) 10.52 K/uL (1.40-6.50); Neutrophils % (auto) 71.6 %; Platelet Count 236 K/uL (130-400); RDW Coefficient of Variation 13.3 % (11.5-14.5); RDW Standard Deviation 46.3 fL (36.4-46.3); Red Blood Count 3.07 M/uL (4.20-5.40); White Blood Count 14.68 K/ul (4.8-10.8)
[2024-10-14] MEDS ORDERED: ONDANSETRON INJ 2 MG/ML 2 ML VIAL IV PRN (21:50)
[2024-10-14] MEDS: CITRIC ACID/SODIUM CITRATE 15 ML UDC ONE ×2 (22:01→22:31)
[2024-10-14 22:06] LABS: Albumin Level 3.1 gm/dl (3.4-5.0); Bilirubin,Total 0.6 mg/dl (0.2-1.0); Calcium 6.6 mg/dl (8.6-10.3); Magnesium Therapeutic L&D Only 4.7 mg/dL (4.0-8.0); Potassium 3.8 mmol/L (3.5-5.1)
[2024-10-14 22:12] LABS: BUN Creatinine Ratio 12.9 (10-20); Creatinine Clr Calc Pharmacy 158.4 ml/min; Total Protein 6.1 gm/dl (6.0-8.3)
--- NOTE | 2024-10-14 22:24 | Obstetrical Progress Note ---
Date of Service October 14, 2024 Assessment & Plan (1) Preeclampsia: Plan: BP on arrival in L&D was 150/97- continue to monitor BP every 20 minutes. she is feeling better and headache is also better still nauseous so will give IV zofran and Bicitra for heartburn. platelets are normal AST slightly higher and ALT is still elevated but stable will repeat labs again in 8 hours. Admission and Anticipated Discharge Date Admission Date: October 12, 2024 Subjective called to patient's bedside on after being transferred from L&D because of change in mental status. she had been on MgS04 for 24 hours post delivery because of PIH with severe features. MgS04 had been stopped at 1905. Mental status change occurred at 2029. She was somnolent but could be aroused- complaining of headache which she has had most of the day but mild. it had escalated with light sensitivity and nausea. BP was 160/112 & 151/113- she was given one dose of 10mg immediate release procardia. she vomited up the capsule about 15 minutes later. after getting a Mag level, CBC and comp metabolic panel the decision was made to move her back to L&D to monitor more closely and be able to give IV meds as needed for BP. Review of Systems Review of Systems: All systems reviewed & are unremarkable except as noted in HPI & below Physical Exam Constitutional: WD/WN, vitals as above Musculoskeletal: DTR's brisk bilaterally tremors in exremities when startled Results & Data Vital Signs (Past 12 Hours) Vital Signs Temp Pulse Resp BP Pulse Ox 10/14/24 22:12 97 H 156/99 H 10/14/24 22:10 105 H 100 10/14/24 22:05 92 H 100 10/14/24 22:00 97 H 100 10/14/24 21:55 88 100 10/14/24 21:50 87 100 10/14/24 21:47 89 157/90 H 10/14/24 21:45 92 H 99 10/14/24 20:42 97.9 F 92 H 16 145/99 H 97 10/14/24 19:00 98.1 F 18 10/14/24 19:00 18 10/14/24 18:55 96 H 134/83 98 10/14/24 18:50 99 H 97 10/14/24 18:45 105 H 98 10/14/24 18:40 91 H 96 10/14/24 18:35 88 98 10/14/24 18:30 94 H 98 10/14/24 18:25 103 H 97 10/14/24 18:20 97 H 97 10/14/24 18:15 106 H 98 10/14/24 18:10 94 H 98 10/14/24 18:05 92 H 98 10/14/24 18:00 16 10/14/24 18:00 100 H 97 10/14/24 17:55 77 97 24 17:50 79 95 24 17:45 73 95 24 17:40 73 96 10/14/24 17:35 71 96 10/14/24 17:30 78 95 10/14/24 17:25 81 96 10/14/24 17:20 82 95 10/14/24 17:15 84 97 10/14/24 17:10 84 97 10/14/24 17:05 84 97 10/14/24 17:00 16 10/14/24 17:00 82 98 10/14/24 16:55 87 97 10/14/24 16:50 84 98 10/14/24 16:45 89 98 10/14/24 16:40 90 98 10/14/24 16:35 93 H 99 10/14/24 16:30 90 98 10/14/24 16:25 82 97 10/14/24 16:20 87 99 10/14/24 16:15 96 H 99 10/14/24 16:10 84 L 10/14/24 16:10 99 H 10/14/24 16:10 99 H 89 L 10/14/24 16:05 82 98 10/14/24 16:02 81 130/91 10/14/24 16:00 18 10/14/24 16:00 98.8 F 18 10/14/24 16:00 93 H 99 10/14/24 15:55 78 98 24 15:50 94 H 96 24 15:45 85 98 24 15:40 85 98 24 15:35 84 95 24 15:30 90 96 24 15:25 97 H 96 24 15:20 88 96 1213/24 15:15 86 96 10/14/24 15:10 90 98 10/14/24 15:05 83 96 10/14/24 15:00 18 10/14/24 15:00 99 10/14/24 15:00 85 10/14/24 15:00 83 85 L 10/14/24 14:55 78 93 10/14/24 14:50 72 94 10/14/24 14:45 76 93 10/14/24 14:40 74 94 10/14/24 14:35 77 92 10/14/24 14:34 86 87 L 10/14/24 14:30 78 95 10/14/24 14:25 77 93 10/14/24 14:20 79 93 10/14/24 14:15 78 93 10/14/24 14:10 83 94 10/14/24 14:05 81 93 10/14/24 14:00 16 10/14/24 14:00 83 97 10/14/24 13:55 84 95 10/14/24 13:50 81 95 10/14/24 13:45 85 94 10/14/24 13:40 87 98 10/14/24 13:35 77 96 10/14/24 13:30 83 97 10/14/24 13:25 82 98 10/14/24 13:20 82 98 10/14/24 13:15 82 98 10/14/24 13:10 83 99 10/14/24 13:05 85 97 10/14/24 13:00 16 10/14/24 13:00 89 98 10/14/24 12:55 85 100 10/14/24 12:50 90 99 10/14/24 12:45 88 99 10/14/24 12:40 86 99 10/14/24 12:35 84 99 10/14/24 12:30 85 100 10/14/24 12:25 91 H 99 10/14/24 12:20 92 H 99 10/14/24 12:16 105 H 89 L 10/14/24 12:13 98 H 100 10/14/24 12:11 98 H 86 L 10/14/24 12:08 110 H 100 10/14/24 12:03 90 97 10/14/24 12:02 78 133/86 10/14/24 12:00 98.1 F 18 10/14/24 12:00 18 10/14/24 11:58 83 98 10/14/24 11:53 82 98 10/14/24 11:48 83 99 10/14/24 11:43 80 98 10/14/24 11:38 83 98 10/14/24 11:33 85 99 10/14/24 11:28 88 97 10/14/24 11:23 86 99 10/14/24 11:18 89 98 10/14/24 11:13 93 H 100 10/14/24 11:08 91 H 94 10/14/24 11:06 81 84 L 10/14/24 11:03 91 H 100 10/14/24 11:00 18 10/14/24 10:58 92 H 100 10/14/24 10:53 97 H 100 10/14/24 10:48 88 98 10/14/24 10:43 96 H 99 10/14/24 10:38 84 97 10/14/24 10:33 85 98 10/14/24 10:28 86 98 10/14/24 10:23 91 H 96 10/14/24 10:18 95 H 96 PG Care Time/CCT Total # of Minutes Spent Total Time Spent with Patient: Total time spent is greater than 50% in coordination of care (as documented) at patient's floor/unit and/or counseling patient: Coding Level of Care Code 94743 SUB INP/OBS CARE 2/35MIN Diagnoses Pre-eclampsia in third trimester O14.93 Trimester: third trimester (1) Preeclampsia Trimester: third trimester Qualified Code(s): O14.93 - Unspecified pre- eclampsia, third trimester
[2024-10-14] MEDS: NIFEdipine 10 MG CAP PO STA (22:30)
[2024-10-15 07:09] LABS: Basophils # (auto) 0.02 K/uL (0.00-0.20); Basophils % (auto) 0.1 %; Eosinophils # (auto) 0.04 K/uL (0.00-0.50); Eosinophils % (auto) 0.3 %; Hematocrit (blood only) 26.6 % (37.0-47.0); Immature Granulocytes # (auto) 0.08 K/uL (0.01-0.20); Immature Granulocytes % (auto) 0.6 %; Lymphocytes # (auto) 3.15 K/uL (1.20-3.40); Lymphocytes % (auto) 22.9 %; Mean Corpuscular Hemoglobin 32.4 pg (25.0-34.0); Mean Corpuscular Hgb Conc 33.8 g/dL (32.0-36.0); Mean Corpuscular Volume 95.7 fL (80.0-100.0); Mean Platelet Volume 12.1 fL (9.4-12.4); Neutrophils # (auto) 9.39 K/uL (1.40-6.50); Neutrophils % (auto) 68.1 %; Platelet Count 217 K/uL (130-400); RDW Coefficient of Variation 13.3 % (11.5-14.5); RDW Standard Deviation 46.8 fL (36.4-46.3); Red Blood Count 2.78 M/uL (4.20-5.40); White Blood Count 13.78 K/ul (4.8-10.8)
[2024-10-15 07:22] LABS: Albumin Level 2.7 gm/dl (3.4-5.0); BUN Creatinine Ratio 14.7 (10-20); Bilirubin,Total 0.5 mg/dl (0.2-1.0); Calcium 7.3 mg/dl (8.6-10.3); Creatinine Clr Calc Pharmacy 144.4 ml/min; Globulin 2.7 gm/dl (2.5-4.0); Total Protein 5.4 gm/dl (6.0-8.3)
--- NOTE | 2024-10-15 08:57 | Obstetrical Progress Note ---
Date of Service October 15, 2024 Assessment & Plan (1) Preeclampsia: liver enzymes trending down now BP was stable overnight and now beginning to slowly increase- will give procardia 30mg XL at 8 am if BP remains stable , will transfer to the floor at noon. Trimester: third trimester Qualified Code(s): O14.93 - Unspecified pre-eclampsia, third trimester Subjective Ambulation: ambulating normally Voiding: no voiding problems Passing Gas:: Yes Diet Tolerance:: regular diet Lochia:: Small Feeding Type:: breast feeding feeling much better this morning. no nausea or headaches at this time. no PIH symptoms currently. sitting up in bed and pumping Review of Systems All systems reviewed & are unremarkable except as noted in HPI & below Physical Exam Constitutional WD/WN, vitals as above Musculoskeletal trace edema Psychiatric A+Ox3, euthymic affect Genitourinary OB Exam Abdomen: + fundal height Fundus: + firm and + relation to umbilicus (2 below U) Results & Data Vital Signs (Past 12 Hours) Vital Signs Temp Pulse Resp BP Pulse Ox O2 Del Method 10/15/24 07:20 97.7 F 16 Room Air 10/15/24 07:15 76 135/96 10/15/24 07:14 80 141/96 H 10/15/24 06:13 76 134/83 10/15/24 05:13 100 H 126/84 10/15/24 04:38 109 H 132/78 10/15/24 04:18 101 H 138/85 10/15/24 03:14 88 139/83 10/15/24 02:16 83 97 10/15/24 02:14 91 H 133/79 10/15/24 02:11 98 H 100 10/15/24 02:06 80 96 10/15/24 02:01 82 94 10/15/24 01:56 77 96 10/15/24 01:51 84 97 10/15/24 01:49 88 93 10/15/24 01:46 83 96 10/15/24 01:41 83 96 10/15/24 01:36 82 96 10/15/24 01:31 84 97 10/15/24 01:26 83 96 10/15/24 01:21 84 96 10/15/24 01:16 82 96 10/15/24 01:14 80 122/76 10/15/24 01:11 84 96 10/15/24 01:06 84 97 10/15/24 01:01 81 97 10/15/24 00:56 80 97 10/15/24 00:51 90 99 10/15/24 00:46 77 98 10/15/24 00:41 75 96 10/15/24 00:36 91 H 97 10/15/24 00:31 88 95 10/15/24 00:26 82 96 10/15/24 00:21 80 97 10/15/24 00:16 80 97 10/15/24 00:14 68 127/76 10/15/24 00:11 77 97 10/15/24 00:06 86 97 10/15/24 00:02 81 94 10/15/24 00:01 86 95 10/15/24 00:00 98.1 F 18 10/14/24 23:56 83 95 10/14/24 23:51 83 95 10/14/24 23:46 84 96 10/14/24 23:41 82 96 10/14/24 23:36 83 96 10/14/24 23:31 82 95 10/14/24 23:26 83 96 10/14/24 23:21 81 96 10/14/24 23:16 80 97 10/14/24 23:12 78 126/77 10/14/24 23:11 81 96 10/14/24 23:06 82 96 10/14/24 23:01 79 97 10/14/24 22:56 91 H 97 10/14/24 22:52 76 135/89 10/14/24 22:51 80 99 10/14/24 22:46 83 98 10/14/24 22:41 87 99 10/14/24 22:36 84 100 10/14/24 22:32 93 H 147/94 H 10/14/24 22:31 89 100 10/14/24 22:26 93 H 99 10/14/24 22:15 92 H 99 10/14/24 22:12 97 H 156/99 H 10/14/24 22:10 105 H 100 10/14/24 22:05 92 H 100 10/14/24 22:00 97 H 100 10/14/24 21:55 88 100 10/14/24 21:50 87 100 24 21:47 89 157/90 H 10/14/24 21:45 92 H 99
[2024-10-15] MEDS: CALCIUM CARBONATE 500 MG CHEWABLE TAB PO PRN (11:30)
[2024-10-15] MEDS: PHENAZOPYRIDINE HCL 200 MG TAB PO STA (11:33)
[2024-10-15 17:32] LABS: Hematocrit (blood only) 25.7 % (37.0-47.0); Hemoglobin 8.6 g/dl (12.0-16.0); Mean Corpuscular Hemoglobin 32.6 pg (25.0-34.0); Mean Corpuscular Hgb Conc 33.5 g/dL (32.0-36.0); Mean Corpuscular Volume 97.3 fL (80.0-100.0); Mean Platelet Volume 12.1 fL (9.4-12.4); Nucleated RBC # (auto) 0.02 K/uL (0.00-0.12); Nucleated RBC % (auto) 0.2 %; Platelet Count 202 K/uL (130-400); RDW Coefficient of Variation 13.4 % (11.5-14.5); RDW Standard Deviation 47.4 fL (36.4-46.3); Red Blood Count 2.64 M/uL (4.20-5.40); White Blood Count 13.09 K/ul (4.8-10.8)
[2024-10-15 17:40] LABS: Albumin Globulin Ratio 1.1 (0.9-2); Albumin Level 2.9 gm/dl (3.4-5.0); BUN Creatinine Ratio 16.2 (10-20); Bilirubin Direct 0.1 mg/dl (0-0.2); Bilirubin,Total 0.5 mg/dl (0.2-1.0); Calcium 8.2 mg/dl (8.6-10.3); Creatinine Clr Calc Pharmacy 144.4 ml/min; Globulin 2.7 gm/dl (2.5-4.0); Total Protein 5.6 gm/dl (6.0-8.3); Uric Acid 4.3 mg/dl (2.6-7.2)
--- NOTE | 2024-10-16 08:25 | Obstetrical Progress Note ---
Date of Service October 16, 2024 Assessment & Plan (1) Preeclampsia: - with PreE with severe features. Labs trending towards normal. Making plenty of urine, however has been unable to void and has severe anxiety about this. Gonzalez removed this morning, no void yet but reassured patient there is still time. If no void by noon, would recc gonzalez replacement and re-trial in AM. Winter weather today makes travel risky so discouraged patient from pressuring herself to achieve void just to be able to leave this afternoon. BP also elevated this AM likely c/w anxiety about TOV, so AM dose procardia to be administered as early as feasible now to get that on board. Trimester: third trimester Qualified Code(s): O14.93 - Unspecified pre-eclampsia, third trimester Subjective Ambulation: ambulating normally Voiding: no voiding problems Passing Gas:: Yes Diet Tolerance:: regular diet Lochia:: Small Feeding Type:: breast feeding (both) Physical Exam Constitutional WD/WN, vitals as above Eyes PERRL, conjunctivae normal, anicteric sclerae Neck normal visual inspection Respiratory normal respiratory effort and able to speak in complete sentences; no respiratory distress and no labored breathing Cardiovascular Rate/Rhythm: regular rate and regular rhythm Extremities: no edema Chest (Breasts) Chest: normal inspection of chest Gastrointestinal (Abdomen) Inspection/Auscultation: abdomen normal to inspection Soft, postgravid Neurologic DTR 2+ Psychiatric A+Ox3, euthymic affect Genitourinary OB Exam Abdomen: + fundal height Fundus: + firm and + relation to umbilicus (fundus just below umbilicus); not tender Results & Data Vital Signs (Past 12 Hours) Vital Signs Temp Pulse Resp BP Pulse Ox O2 Del Method 10/16/24 03:15 98.4 F 80 18 158/96 H 98 Room Air 10/15/24 23:07 98.4 F 72 16 114/72 97 Room Air 10/15/24 20:30 Room Air 10/15/24 20:30 98.4 F 78 16 143/91 H 96 Room Air
[2024-10-16 10:24] VITALS: O2SAT 97
[2024-10-16] MEDS: LIDOCAINE 2% JELLY 5 ML TUBE EXT ONE (17:25)
[2024-10-16 23:32] VITALS: RESP 16; TEMP 98.6
--- NOTE | 2024-10-17 06:55 | Obstetrical Progress Note ---
Date of Service October 17, 2024 Assessment & Plan (1) Preeclampsia: Plan: , with preeclampsia with severe features. BP trending down. BP: 136/ 93 mm Hg this AM Last 24 hour: 136-158/ 88-96 No premonitory symptoms. Ready for discharge. Will send home with Gonzalez's and call back for voiding trial at office. (2) Vaginal delivery: Plan: 4th day , with preeclampsia with severe features. BP trending down. Voiding: Gonzalez Passing Gas:: Yes Diet Tolerance:regular diet Lochia:Small Feeding Type:breast feeding (both) Ready for discharge. Will send home with Gonzalez's and call back for voiding trial at office. Admission and Anticipated Discharge Date Admission Date: October 12, 2024 Supervising Physician Co-Signing Physician Notes Resident Physician Supervision Note: I interviewed and examined the patient. Discussed with Dr. Salazar and agree with findings and plan as documented in the note. Any exceptions or clarifications are listed here: [ ] Documented By: Bebe Vieyra MD, FACOG Subjective She is doing well this AM. No headache, chest pain, SOB, palpitation, blurring of vision, vomiting. Eating normally. Catheter was reinserted yesterday after she was unable to void at around noon. Passing normal voume urine after that. Still feels anxious about voiding and wants to continue gonzalez's for few more days. No fever, suprapubic burning. Ambulation: ambulating normally Voiding: Gonzalez Passing Gas:: Yes Diet Tolerance:regular diet Lochia:Small Feeding Type:breast feeding (both) Review of Systems Review of Systems: No SOB, chest pain, leg pain No dizziness, headache, palpitation No Blurring of vision , fever Physical Exam Physical Exam: General: Alert and oriented. No acute distress. CVS: S1 S2+ No murmurs, regular rhythm. Respiratory: CTA bilaterally. No rhonchi, wheezes, or crackles. No increased work of breathing. Abdomen: Bowel sound +. Soft, nontender Uterus: Fundus firm and palpable few cm above pubis. Lower extremities: No LE edema. No deep calf pain. Results & Data Vital Signs (Past 12 Hours) Vital Signs Temp Pulse Resp BP O2 Del Method 10/16/24 23:31 37.0 C 83 16 136/93 Room Air 10/16/24 20:20 36.7 C 71 14 145/88 H Room Air Resident Activity Tracking Resident Involvement: Resident Care Provided Care Provided: OB Delivery (1) Preeclampsia Trimester: third trimester Qualified Code(s): O14.93 - Unspecified pre- eclampsia, third trimester
[2024-10-17 09:00] VITALS: PULSE 80
[2024-10-17 09:22] VITALS: BP 142/95
== END 2024-10-17 12:00 | disposition home or self-care (01) | DRG 807 ==
LOC: OPB 06:33 → 4S1 06:36 → 4E2 10-14 20:54 → 4S1 10-14 21:38 → 4E2 10-15 19:12